=== PATIENT | female | born 1955 | race Caucasian/White ===

== ENCOUNTER 2023-10-25 22:15 | Observation (INO) | payer MEDICARE, OTHER ==
[2023-10-25 23:20] VITALS: BMI 21.1
[2023-10-25] MEDS ORDERED: Ondansetron PF 4 MG/2 ML Vial IVP PRN (23:38)
[2023-10-26] MEDS: Acetaminophen 325 MG TAB PO PRN (00:20)
[2023-10-26 04:33] LABS: %Basophils 1.3 % (0.0-1.0); %Eosinophils 7.2 % (0.0-10.0); %Lymphocytes 38.7 % (21.0-51.0); %Monocytes 12.2 % (0.0-10.0); %Neutrophils 40.3 % (42.0-75.0); Hematocrit 34.5 % (36.0-47.0); Hemoglobin 11.3 g/dL (12.0-16.0); Mean Corpuscular HGB CONC 32.8 g/dL (32.0-36.0); Mean Corpuscular Hemoglobin 33.8 pg (27.0-31.0); Mean Corpuscular Volume 103.3 fL (78.0-98.0); Mean Platelet Volume 9.6 fL (7.4-10.4); Platelet Count 200 10x3/uL (130-400); RBC Distribution Width 12.4 % (11.5-14.5); Red Blood Cell (RBC) Count 3.34 mill/uL (4.20-5.40)
[2023-10-26 05:00] LABS: Anion Gap 10 mmol/L (10-20); BUN (Urea Nitrogen) 15 mg/dL (9.8-20.1); Calc. Creatinine Clearance 36 mL/min (70-130); Calcium 8.1 mg/dL (7.8-10.44); Carbon Dioxide 17 mmol/L (23-31); Chloride 119 mmol/L (98-107); Estimated GFR 52; Glucose 80 mg/dL (80-115); Potassium 3.3 mmol/L (3.5-5.1); Sodium 143 mmol/L (136-145)
[2023-10-26] MEDS: Levothyroxine Sodium 100 MCG TAB PO SCH (06:04)
[2023-10-26] MEDS: Sertraline 100 MG TAB PO SCH (09:07)
[2023-10-26] MEDS: Leflunomide 10 mg Tablet PO SCH (09:07)
[2023-10-26] MEDS: BuPROPion XL 150 MG ER.TAB PO SCH (10:05)
[2023-10-26] MEDS ORDERED: Magnevist 469MG/ML 20 ML VIAL ONE (11:00)
[2023-10-26 16:22] VITALS: BP 128/72; TEMP 98.4
[2023-10-26] MEDS ORDERED: Atorvastatin Calcium 40 MG TAB PO SCH (21:00)
[2023-10-26] MEDS ORDERED: Topiramate 100 MG TAB PO SCH (21:00)
[2023-10-26] MEDS ORDERED: CLOMIPRAMINE HCL 50 MG PO SCH (21:00)
== END 2023-10-26 16:52 | disposition home or self-care (01) ==
LOC: 2NO 22:15
PROVIDERS: ADMIT Internal Medicine; ATTEND Hospitalist
DX: T67.01XA Heatstroke and sunstroke, initial encounter (principal); R44.1 Visual hallucinations; E03.9 Hypothyroidism, unspecified; E78.5 Hyperlipidemia, unspecified; N18.30 Chronic kidney disease, stage 3 unspecified; M06.9 Rheumatoid arthritis, unspecified; F32.A Depression, unspecified; F42.9 Obsessive-compulsive disorder, unspecified; F17.210 Nicotine dependence, cigarettes, uncomplicated; Z79.890 Hormone replacement therapy; Z79.899 Other long term (current) drug therapy
CPT/HCPCS: 70553; 80048; 85025; G0378; 36415; A9579

== ENCOUNTER 2025-01-24 12:38 | Outpatient (CLI) | payer OTHER | END 2025-01-24 12:39 | disposition home or self-care (01) | LOC: BICMAMMO 12:38 | PROVIDERS: ATTEND Physician Assistant | DX: Z12.31 Encounter for screening mammogram for malignant neoplasm of breast (principal) | CPT/HCPCS: 77063; 77067 ==